=== PATIENT | female | born 1980 | race Caucasian/White ===

== ENCOUNTER 2023-12-17 11:29 | Observation (INO) | payer OTHER ==
[2023-12-17 11:37] VITALS: RESP 18; TEMP 99; BMI 18.8
[2023-12-17 13:34] LABS: BASO % 1.1 % (0-2.0); EOS % 1.1 % (0-4.5); HEMATOCRIT 25.4 % (32.4-45.2); HEMOGLOBIN 8.3 GM/dL (10.7-15.3); MCH 30.3 pg (25.7-33.7); MCHC 32.7 g/dl (32.0-36.0); MEAN CELL VOLUME 92.7 fl (80-96); NEUT % 57.8 % (42.8-82.8); PLATELET COUNT 245 10^3/uL (134-434); RBC 2.74 M/mm3 (3.60-5.2); RDW 13.7 % (11.6-15.6); WHITE BLOOD COUNT 7.2 K/mm3 (4.0-10.0)
[2023-12-17 13:52] LABS: CALCIUM 8.7 mg/dL (8.5-10.1)
[2023-12-17 13:53] LABS: ALBUMIN 3.6 g/dl (3.4-5.0); BLOOD UREA NITROGEN 8.2 mg/dL (7-18)
[2023-12-17 13:56] LABS: CREATININE 0.7 mg/dL (0.55-1.3)
[2023-12-17 13:57] LABS: BILIRUBIN,TOTAL 0.2 mg/dL (0.2-1); TOT PROT 6.4 g/dl (6.4-8.2)
[2023-12-17] MEDS: MAG HYDROX/AL HYDROX/SIMETH -MYLANTA- ORAL SUSPENSION PO ONE (15:33)
[2023-12-17] MEDS: SODIUM CHLORIDE 1,000 ML IV STA (15:34)
[2023-12-17] MEDS: FAMOTIDINE 20 MG TABLET PO ONE (15:34)
[2023-12-17] MEDS: ACETAMINOPHEN 1000 MG/100 ML BAG IVPB ONE (15:34)
[2023-12-17 16:55] VITALS: BP 102/70; PULSE 83
[2023-12-17 17:01] LABS: BASO % 1.2 % (0-2.0); EOS % 1.1 % (0-4.5); HEMATOCRIT 26.9 % (32.4-45.2); HEMOGLOBIN 8.9 GM/dL (10.7-15.3); LYMPH % 38.3 % (8-40); MCH 30.4 pg (25.7-33.7); MCHC 33.2 g/dl (32.0-36.0); MEAN CELL VOLUME 91.6 fl (80-96); MEAN PLT VOLUME 8.9 fl (7.5-11.1); MONO % 7.8 % (3.8-10.2); NEUT % 51.6 % (42.8-82.8); PLATELET COUNT 271 10^3/uL (134-434); RBC 2.93 M/mm3 (3.60-5.2); RDW 13.9 % (11.6-15.6); WHITE BLOOD COUNT 7.8 K/mm3 (4.0-10.0)
[2023-12-17 17:12] LABS: INR 0.9 (0.83-1.09); PROTHROMBIN TIME (PATIENT) 10.2 SEC (9.7-13.0)
[2023-12-17 17:14] LABS: ACTIVATED PTT 33.8 SECONDS (25.2-36.5)
== END 2023-12-17 17:46 | disposition home or self-care (01) ==
LOC: JER 11:29 → JERBED 16:56
PROVIDERS: ADMIT Internal Medicine; ATTEND Internal Medicine
DX: R19.5 Other fecal abnormalities (principal); D64.9 Anemia, unspecified; R10.13 Epigastric pain; R00.0 Tachycardia, unspecified
CPT/HCPCS: 0241U-QW; 36415; 74177-TC; 80053; 82272; 82728; 82746; 83010; 83540; 83550; 83615; 83690; 84466; 84484; 84703; 85025; 85610; 85730; 86850; 86900; 86901; 93005; 93010; 99285-25; G0378